=== PATIENT | male | born 1950 | race Caucasian/White ===

== ENCOUNTER 2019-01-31 05:45 | Day surgery (SDC) | payer MEDICARE, OTHER ==
[~2019-01-31 05:45] MED LIST: Buffered Lidocaine 1% SYRIN* 1 ML/SYRINGE INTRADERM ONE
[2019-01-31] MEDS ORDERED: Famotidine IV* 10 MG/ML 2 ML (20 mg) IV ONE (06:00)
[2019-01-31] MEDS ORDERED: Lactated Ringers 1000 ML Bag* 1,000 ML IV SCH (06:00)
[2019-01-31] MEDS ORDERED: Lidocaine 1% INJ* 10 MG/ML 30 ML SDV ONE (06:47)
[2019-01-31] MEDS ORDERED: Propofol* 10 MG/ML 20 ML BTL ONE (07:00)
[2019-01-31] MEDS ORDERED: Dexamethasone IV* 4 MG/ML 1 ML (4 MG) ONE (07:00)
[2019-01-31] MEDS ORDERED: fentaNYL* 50 MCG/ML 2 ML VIAL (100 MCG VIAL) ONE (07:00)
[2019-01-31] MEDS ORDERED: Ondansetron INJ* 2 MG/ML VIAL ONE (07:00)
[2019-01-31] MEDS ORDERED: Lidocaine 2% PF * 5 ML VIAL ONE (07:00)
[2019-01-31] MEDS ORDERED: Midazolam* 1 MG/ML 5 ML VIAL (5 MG) ONE (07:00)
[2019-01-31] MEDS ORDERED: Ketorolac INJ* 30 MG/ML 1 ML VIAL ONE ×2 (07:01)
[2019-01-31] MEDS ORDERED: Famotidine IV* 10 MG/ML 2 ML (20 mg) ONE (07:04)
[2019-01-31] MEDS ORDERED: methylPREDNISolone ACETATE 80* 80 MG/ML 1 ML VIAL ONE (07:05)
[2019-01-31] MEDS ORDERED: oxyCODONE/Acetamin 5/325 MG* TAB PO PRN (07:15)
[2019-01-31] MEDS ORDERED: Naloxone* 0.4 MG/ML 1 ML VIAL IV PRN (07:15)
[2019-01-31] MEDS ORDERED: Ondansetron INJ* 2 MG/ML VIAL IV PRN (07:15)
[2019-01-31] MEDS ORDERED: fentaNYL* 50 MCG/ML 2 ML VIAL (100 MCG VIAL) IV PRN (07:15)
[2019-01-31 08:22] VITALS: BP 140/73
--- NOTE | 2019-01-31 09:55 | OP ---
DATE OF OPERATION: 01/31/19 - [facility] DATE OF : 54 SURGEON: Nicki Boyle MD MEDICAL BILLER CODER: ALBIN Kincaid ANESTHESIA: Local MAC. PRE-OP DIAGNOSIS: Left carpal tunnel syndrome and left middle finger trigger finger. POST-OP DIAGNOSIS: Left carpal tunnel syndrome and left middle finger trigger finger. OPERATIVE PROCEDURE: Left carpal tunnel release and left middle finger injection. ESTIMATED BLOOD LOSS: Zero. TOURNIQUET TIME: About 10 minutes. INDICATION FOR PROCEDURE: Sandeep is a 68-year-old man who has numbness and tingling in the median nerve distribution of his left hand. He presents for left carpal tunnel release and injection of his left middle finger. DESCRIPTION OF PROCEDURE: The patient was brought to the operating room and was given a sedation anesthetic and a local infiltration of 10 cc of 0.1% plain lidocaine in the palm of his left hand. Additional injection of 80 mg of Depo- Medrol and 2 cc of 1% plain lidocaine was given at the MP joint of the left middle finger. The skin of his left upper extremity was prepped and draped in the usual sterile fashion. The hand and forearm were exsanguinated and the tourniquet elevated to 250 mmHg. A longitudinal incision was made in the palm in line with the ring finger. We dissected through the subcutaneous tissue down to the transverse carpal ligament. The ligament was divided sharply with the knife and then more proximally with scissors. The nerve was dissected free from the surrounding tissue and there is an area of moderate compression at the midportion of the ligament. The wound was irrigated and the skin edges were reapproximated with 4-0 nylon suture. The wound was dressed with Xeroform, 4x4 , Webril, and an Grayson wrap. The patient tolerated the procedure well and was brought to the recovery room in good condition. [id number]/[facility] #: [id number] MTDD
--- NOTE | 2019-02-14 20:24 | OP ---
CC: Dr. Boyle OPERATIVE REPORT: DATE OF OPERATION: 01/31/19 CORRECTION: The correction is that the entire note should say the right carpal tunnel syndrome and r ight middle finger everywhere, where it states left should say right. [id number]/[facility] #: [id number]
== END 2019-01-31 08:31 | disposition home or self-care (01) ==
LOC: OR 05:45
PROVIDERS: ATTEND Orthopaedic Surgery
DX: G56.01 Carpal tunnel syndrome, right upper limb (principal); M65.331 Trigger finger, right middle finger; M19.041 Primary osteoarthritis, right hand; K21.9 Gastro-esophageal reflux disease without esophagitis; I10 Essential (primary) hypertension; Z85.51 Personal history of malignant neoplasm of bladder; Z96.653 Presence of artificial knee joint, bilateral; Z87.891 Personal history of nicotine dependence; Z86.73 Personal history of transient ischemic attack (TIA), and cerebral infarction without residual deficits
CPT/HCPCS: J1040; J1100; J1885; J2250; J2405; J2704; J3010